=== PATIENT | female | born 2000 | race African-American/Black ===

== ENCOUNTER 2024-03-04 15:06 | Inpatient (IN) ==
--- NOTE | 2024-03-04 16:27 | Emergency Department Note ---
History of Present Illness General Chief complaint: Vaginal Pain Stated complaint: ABSCESS SKIN, VAGINA Time Seen by Provider: 03/04/24 16:10 History of Present Illness Maximum Pain Intensity: 10 This is a 23-year-old female that presents to the emergency department via private vehicle with complaints of "left-sided skin abscess, on vagina". The patient notes that she had an ingrown hair to the left labia majora 1.5 months ago however this past Wednesday became raised, then Wednesday, and Wednesday progressively enlarged. She presented to [facility] today and was referred here. She denies receiving any medications at [facility]. No I&D to the area at [facility]. She denies any vaginal pain internally. It is all external. No fevers, chills, nausea or vomiting. No pertinent past medical history, surgeries or allergies. Allergies Allergy/AdvReac Type Severity Reaction Status Date / Time No Known Allergies Allergy Unverified 03/04/24 21:38 Past Med/Surg History Problem List (Updated 03/04/24 @ 18:36 by Elias Calero PA-C) Abscess of left genital labia (Acute) Social History Smoking Status: Former smoker Second Hand Exposure: No; Do You Dip or Chew Tobacco: No; Hx Alcohol Use: Yes Hx Substance Use: No Preferred Language: Lebanese Communication Ability: Effective Correctional Counselor Required: No Beliefs That Will Affect Care: None Current Living Situation: Parent Other Information That Helps Us Care for You: No Feels Safe at Home: Yes Safety Concerns: Feels Safe At This Time Assistive Devices: None Review of Systems A total of 10 systems reviewed and were otherwise negative Physical Exam Vital Signs Vital Signs - 24 hr 03/04/24 15:15 03/04/24 18:25 Temperature 36.5 C Temperature Source Temporal Artery Scan Pulse Rate 128 H Pulse Rate [Finger] 99 H Respiratory Rate 19 15 Respiratory Effort / Characteristics Non-Labored Spontaneous Non-Labored Spontaneous Respiratory Depth Normal Normal Respiratory Pattern Regular Blood Pressure 123/88 Blood Pressure [Right Arm] 126/83 Blood Pressure Mean 99 Blood Pressure Mean [Right Arm] 97 Pulse Oximetry 100 100 Oxygen Delivery Method Room Air Room Air Sepsis Recent Fever Within 48 Hours No Sepsis New/Unexplained Change in Mental Status No Sepsis Action Taken by Nursing No Action Required VITAL SIGNS - Vital signs and nursing notes were reviewed. Stable and afebrile. GENERAL -23-year-old female appearing her stated age who is in no acute distress. Communicates well with provider and answers questions appropriately. SKIN - Without rashes. Please see exam below. HEAD - NC/AT. EYES - PERRL with EOMI bilaterally. Sclera anicteric. NOSE - Midline and without cyanosis. No epistaxis or purulent drainage noted. Septum midline without deviation or septal hematoma noted. MOUTH/OROPHARYNX - Without perioral cyanosis. NECK - Neck with FROM. No nuchal rigidity. LUNGS - CTA CARDIAC - RRR ABDOMEN - Abdominal contour normal without pulsations or visible masses. BS normoactive all four quadrants. No tenderness, palpable masses, hepatosplenomegaly, or ascites noted. NEUROLOGIC - Cranial nerves grossly intact. PSYCH -alert, oriented and pleasant on exam. Norman Zee present to [facility]. Consent was obtained from the patient. The left labia majora is mildly erythematous with edema with a palpable fluctuant structure approximately 2 cm in diameter. There is no current drainage. This does not seem to involve the internal vaginal structures. Course Administered Medications Lactated Ringer's (Lr) 1,000 mls @ 125 mls/hr IV .Q8H RODRIGUEZ Stop: 04/03/24 21:36 Last Admin: 03/04/24 22:11 Dose: 125 mls/hr Documented By: CRIS Oxycodone/Acetaminophen (Oxycodone/Acetaminophen 5mg/325mg Tab) 1 tab PO Q4H PRN PRN Reason: Pain Stop: 03/18/24 20:03 Last Admin: 03/04/24 22:09 Dose: 1 tab Documented By: CRIS Discontinued Medications Sodium Chloride (Nss) 1,000 mls @ 500 mls/hr IV .Q2H RODRIGUEZ Stop: 03/04/24 19:59 Last Infusion: 03/04/24 20:20 Dose: Infused Documented By: Admin: 03/04/24 18:25 Dose: 500 mls/hr Documented By: ROBERTO Ampicillin Sodium/Sulbactam Sodium 3,000 mg/ Sodium Chloride 100 mls @ 200 mls/hr IV NOW STA Stop: 03/04/24 18:21 Last Infusion: 03/04/24 19:42 Dose: Infused Documented By: Admin: 03/04/24 18:50 Dose: 200 mls/hr Documented By: ROBERTO Morphine Sulfate (Morphine Sulfate 2 Mg/Ml Carp) 2 mg IV NOW STA Stop: 03/04/24 19:16 Last Admin: 03/04/24 19:20 Dose: 2 mg Documented By: CARMINA Ondansetron HCl (Ondansetron Inj 2 Mg/Ml 2 Ml Vial) 4 mg IV NOW STA Stop: 03/04/24 19:16 Last Admin: 03/04/24 19:20 Dose: 4 mg Documented By: CARMINA Medical Decision Making Laboratory Data 03/04/24 16:52 03/04/24 16:52 Lab Results 03/04/24 03/04/24 Range/Units 16:52 18:20 WBC 15.86 H (4.8-10.8) K/ul RBC 5.60 H (4.20-5.40) M/uL Hgb 11.3 L (12.0-16.0) g/dl Hct 37.3 (37.0-47.0) % MCV 66.6 L (80.0-100.0) fL MCH 20.2 L (25.0-34.0) pg MCHC 30.3 L (32.0-36.0) g/dL RDW Std Deviation 35.6 L (36.4-46.3) fL RDW Coeff of Kristy 15.4 H (11.5-14.5) % Plt Count 302 (130-400) K/uL MPV 10.6 (9.4-12.4) fL Immature Gran % (Auto) 0.5 % Neut % (Auto) 83.6 % Lymph % (Auto) 11.5 % [place] % (Auto) 4.0 % Eos % (Auto) 0.1 % Baso % (Auto) 0.3 % Neut # (Auto) 13.26 H (1.40-6.50) K/uL Lymph # (Auto) 1.83 (1.20-3.40) K/uL [place] # (Auto) 0.64 H (0.11-0.59) K/uL Eos # (Auto) 0.01 (0.00-0.50) K/uL Baso # (Auto) 0.04 (0.00-0.20) K/uL Immature Gran # (Auto) 0.08 (0.01-0.20) K/uL Microcytosis Present Ovalocytes 1+ Schistocytes 1+ Sodium 137 (136-145) mmol/L Potassium 3.7 (3.5-5.1) mmol/L Chloride 102 (98-107) mmol/L Carbon Dioxide 23 (21-32) mmol/L Anion Gap 12 H (3-11) BUN 7 (6-23) mg/dl Creatinine 0.52 L (0.6-1.2) mg/dl Est Cr Clr Drug Dosing 122.7 ml/min Est GFR ( Amer) > 150.0 ml/min Est GFR (Non-Af Amer) 135.6 ml/min BUN/Creatinine Ratio 13.5 (10-20) Glucose 65 L (70-99(Fasting)) mg/dl Lactate 1.3 (0.4-2.0) mmol/L Calcium 10.4 H (8.6-10.3) mg/dl Total Bilirubin 0.7 (0.2-1.0) mg/dl AST 13 (13-39) U/L ALT 5 L (7-52) U/L Alkaline Phosphatase 56 (34-104) U/L Total Protein 8.7 H (6.0-8.3) gm/dl Albumin 5.0 (3.4-5.0) gm/dl Globulin 3.7 (2.5-4.0) gm/dl Albumin/Globulin Ratio 1.4 (0.9-2) Procalcitonin < 0.02 (0-0.5) ng/ml HCG, Qual Negative (Negative) MDM Narrative Patient was seen and evaluated as above in room D09. Review was performed of triage nursing notes and vital signs. A thorough history and physical examination was performed. I did review the accompanying documentation from [employer]. The patient has what appears to be an infection to the left labia majora/abscess. She is tachycardic on arrival at 128. Options of care were discussed with the patient. IV access was established. Labs were drawn. There is leukocytosis 15.86. Mild anemia noted with hemoglobin of 11.3. hCG negative. Mild hyperglycemia 65. Procalcitonin within normal range. I discussed presentation with the on-call CIS COORDINATOR, Dr. Chun. We agree with adding blood cultures, IV antibiotics. He will come evaluate the patient. I did order IV analgesia and IV antiemetics preprocedure. Please refer to gynecology note regarding procedure. Will proceed with admission at this time for IV antibiotics. Wound culture is pending. Please refer to further documentation regarding her stay. GCS: 15 In the evaluation and treatment of this patient the following differential diagnoses were entertained: Cellulitis, abscess, necrotizing fasciitis, among others. Impression & Plan Abscess of left genital labia Discharge Plan Visit Data Chief Complaint: Vaginal Pain Stated Complaint: ABSCESS SKIN, VAGINA ED Provider: Reinier Sommer ED Midlevel Provider: Elias Calero Discharge Problem: Abscess of left genital labia Patient Disposition: Home - Self-Care Condition: Good Discharge Instructions Interventions: ED Discharge Assessment Last Done: 03/04/24 20:36
[2024-03-04 17:18] LABS: Basophils # (auto) 0.04 K/uL (0.00-0.20); Basophils % (auto) 0.3 %; Eosinophils # (auto) 0.01 K/uL (0.00-0.50); Eosinophils % (auto) 0.1 %; Hematocrit (blood only) 37.3 % (37.0-47.0); Hemoglobin 11.3 g/dl (12.0-16.0); Immature Granulocytes # (auto) 0.08 K/uL (0.01-0.20); Immature Granulocytes % (auto) 0.5 %; Lymphocytes # (auto) 1.83 K/uL (1.20-3.40); Lymphocytes % (auto) 11.5 %; Mean Corpuscular Hemoglobin 20.2 pg (25.0-34.0); Mean Corpuscular Hgb Conc 30.3 g/dL (32.0-36.0); Mean Corpuscular Volume 66.6 fL (80.0-100.0); Monocytes # (auto) 0.64 K/uL (0.11-0.59); Neutrophils # (auto) 13.26 K/uL (1.40-6.50); Neutrophils % (auto) 83.6 %; RDW Coefficient of Variation 15.4 % (11.5-14.5); RDW Standard Deviation 35.6 fL (36.4-46.3); White Blood Count 15.86 K/ul (4.8-10.8)
[2024-03-04 17:30] LABS: Alanine Aminotransferase 5 U/L (7-52); Albumin Globulin Ratio 1.4 (0.9-2); Alkaline Phosphatase 56 U/L (34-104); Anion Gap 12 (3-11); Aspartate Aminotransferase 13 U/L (13-39); BUN Creatinine Ratio 13.5 (10-20); Bilirubin,Total 0.7 mg/dl (0.2-1.0); Blood Urea Nitrogen 7 mg/dl (6-23); Calcium 10.4 mg/dl (8.6-10.3); Carbon Dioxide 23 mmol/L (21-32); Chloride 102 mmol/L (98-107); Creatinine Clr Calc Pharmacy 122.7 ml/min; Est GFR (African American) > 150.0 ml/min; Est GFR (Non-African American) 135.6 ml/min; Globulin 3.7 gm/dl (2.5-4.0); Glucose 65 mg/dl (70-99(Fasting)); Potassium 3.7 mmol/L (3.5-5.1); Pregnancy Test, Serum Negative (Negative); Sodium 137 mmol/L (136-145); Total Protein 8.7 gm/dl (6.0-8.3)
[2024-03-04 17:38] LABS: Mean Platelet Volume 10.6 fL (9.4-12.4); Microcytosis Present; Ovalocytes 1+; Platelet Count 302 K/uL (130-400); Schistocytes 1+
[2024-03-04] MEDS: SODIUM CHLORIDE 0.9% 1,000 ML IV SCH (18:25)
[2024-03-04] MEDS: AMPICILLIN/SULBACTAM SOD 3,000 MG in SODIUM CHLOR 0.9% MINI-B 100 ML IV STA (18:50)
[2024-03-04] MEDS ORDERED: BENZOCAINE/TETRACAIN/BUTAM 50 APPLN/5 GM CAN EXT ONE (19:16)
[2024-03-04] MEDS ORDERED: ETHYL CHLORIDE AER PER SPRAY 100 ML CAN EXT ONE (19:17)
[2024-03-04] MEDS: MoRPHine SULFATE 2 MG/ML CARP IV STA (19:20)
[2024-03-04] MEDS: ONDANSETRON INJ 2 MG/ML 2 ML VIAL IV STA (19:20)
--- NOTE | 2024-03-04 20:12 | History & Physical Report ---
Date of Service March 04, 2024 Assessment & Plan (1) Abscess of left genital labia: Plan Admission overnight for IV antibiotics every 6 hours. Repeat CBC differential in the morning. History of Present Illness Chief Complaint: Pain and swelling of the left labia. Dizziness. Primary Care Provider: Naima Sanchez Patient is a 29-year-old male lip she is in good general health she is on no form of control her last menstrual period was 02/17/2024. She started developing pain in her left labia Radha the week of admission. [place] it was from an infected hair follicle. The symptoms persisted and got progressively worse. By the time she came to the emergency room she was unable to sit down for about 2 days had periodic episodes of lightheadedness and dizziness. I received a call from the emergency room doctor for consultation. She stated the patient had a white cell count of 18,000. And was tachycardia to the rate of 120 beats a minute. Past Med/Surg History Problem List (Updated 03/04/24 @ 18:36 by Elias Calero PA-C) Abscess of left genital labia (Acute) Social History Smoking Status: Never smoker Preferred Language: Nepalese Feels Safe at Home: Yes Physical Exam Physical Exam: Physical exam revealed a well-developed well-nourished black female alert oriented x 3 cooperative in a moderate amount of distress. Heart had regular rhythm S1 and S2 were low normal. Lungs are clear to auscultation percussion abdomen was soft and nontender there is no CVA tenderness no calf tenderness pelvic exam revealed large amount of swelling of the left labia was fluctuant. And there was an area that seem to be the source of infection and an infected hair follicle. Results & Data Results & Data Vital Signs (Past 12 Hours) Vital Signs Temp Pulse Pulse Resp BP BP Pulse Ox 03/04/24 18:25 99 H 15 126/83 100 03/04/24 15:15 36.5 C 128 H 19 123/88 100 O2 Del Method 03/04/24 18:25 Room Air 03/04/24 15:15 Room Air Medications Administered 3 g of Unasyn was administered IV prior to incision and drainage of the abscess.
--- NOTE | 2024-03-04 20:15 | Operative Report ---
Post Operative Report Pre & Post Diagnosis Preoperative diagnosis abscess of the left labia. Postoperative diagnosis incision drainage and culture of left labial abscess. I identified the patient and participated in the time-out.: Yes Procedure Patient was placed in the stirrups. Labial abscess was exposed. Was painted with Betadine. Sprayed with local spray ethyl chloride. Ethyl chloride was resprayed. A #15 blade was used to make an incision. A large amount of pustular material was expressed. Culture was taken of this material and sent to the lab. Pressure was applied to the labia to express all available fluid in the abscess cavity. Surgeon Kodi Chun MD Supervisor Sign Shop None Estimated Blood Loss 0 Findings Consistent with Post-Op Diagnosis Left labial abscess. Specimens Culture of the abscess taken and submitted to the lab. Anesthesia Type Local Complications None Indications Painful left labia. Unable to sit down. Suggestion of systemic symptoms from the infection. Description of Procedure Left labial abscess was exposed in the stirrups. Painted with Betadine solutio n. The lower area was then treated with ethyl chloride local anesthetic. And a #15 blade was used to incise the abscess. Abscess then was drained. Culture was taken. I attest to the content of the Intraoperative Record and any orders documented therein. Any exceptions are noted below.
[2024-03-04] MEDS ORDERED: ACETAMINOPHEN 325 MG TAB PO PRN (21:37)
[2024-03-04] MEDS: oxyCODONE/ACETAMINOPHEN 5mg/325mg TAB PO PRN (22:09)
[2024-03-04] MEDS: LACTATED RINGER'S 1,000 ML IV SCH (22:11)
[2024-03-04] MEDS: ZOLPIDEM TARTRATE 5 MG TAB PO PRN (23:27)
[2024-03-05] MEDS: Patient's ALLERGY Info needs ENTERED STA (00:40)
[2024-03-05] MEDS: AMPICILLIN/SULBACTAM SOD 3,000 MG in SODIUM CHLOR 0.9% MINI-B 100 ML IV SCH (01:40)
[2024-03-05 07:00] LABS: Basophils # (auto) 0.04 K/uL (0.00-0.20); Basophils % (auto) 0.3 %; Eosinophils % (auto) 0.8 %; Hematocrit (blood only) 27.5 % (37.0-47.0); Hemoglobin 8.7 g/dl (12.0-16.0); Immature Granulocytes # (auto) 0.05 K/uL (0.01-0.20); Immature Granulocytes % (auto) 0.4 %; Lymphocytes # (auto) 3.43 K/uL (1.20-3.40); Lymphocytes % (auto) 28.9 %; Mean Corpuscular Hemoglobin 20.5 pg (25.0-34.0); Mean Corpuscular Hgb Conc 31.6 g/dL (32.0-36.0); Mean Corpuscular Volume 64.9 fL (80.0-100.0); Monocytes # (auto) 0.89 K/uL (0.11-0.59); Monocytes % (auto) 7.5 %; Neutrophils # (auto) 7.36 K/uL (1.40-6.50); Neutrophils % (auto) 62.1 %; RDW Coefficient of Variation 15.4 % (11.5-14.5); RDW Standard Deviation 35.4 fL (36.4-46.3); Red Blood Count 4.24 M/uL (4.20-5.40); White Blood Count 11.87 K/ul (4.8-10.8)
[2024-03-05 07:24] LABS: Mean Platelet Volume 10.7 fL (9.4-12.4); Platelet Count 267 K/uL (130-400)
[2024-03-05 07:27] LABS: Microcytosis Present
[2024-03-05] MEDS: ONDANSETRON INJ 2 MG/ML 2 ML VIAL IV PRN (09:00)
--- NOTE | 2024-03-05 13:06 | Obstetrical Progress Note ---
Date of Service March 05, 2024 Assessment & Plan Admission and Anticipated Discharge Date Admission Date: March 04, 2024 OB Progress Note abdomen soft and non tender ambulating well decreased pain no calf tenderness afebrile Results & Data Vital Signs (Past 12 Hours) Vital Signs Temp Pulse Pulse Resp BP Pulse Ox O2 Del Method 03/05/24 08:15 36.5 C 75 18 113/62 99 Room Air 03/05/24 06:41 68 18 99/56 L 99 Room Air 03/05/24 01:45 36.7 C 78 16 109/65 98 Room Air
[2024-03-05 13:26] LABS: Basophils # (auto) 0.02 K/uL (0.00-0.20); Basophils % (auto) 0.2 %; Eosinophils # (auto) 0.08 K/uL (0.00-0.50); Eosinophils % (auto) 0.9 %; Hematocrit (blood only) 30.1 % (37.0-47.0); Immature Granulocytes # (auto) 0.05 K/uL (0.01-0.20); Immature Granulocytes % (auto) 0.5 %; Lymphocytes # (auto) 2.27 K/uL (1.20-3.40); Lymphocytes % (auto) 24.9 %; Mean Corpuscular Hgb Conc 29.9 g/dL (32.0-36.0); Mean Corpuscular Volume 66.7 fL (80.0-100.0); Monocytes # (auto) 0.66 K/uL (0.11-0.59); Monocytes % (auto) 7.2 %; Neutrophils # (auto) 6.03 K/uL (1.40-6.50); Neutrophils % (auto) 66.3 %; RDW Coefficient of Variation 15.5 % (11.5-14.5); RDW Standard Deviation 36.4 fL (36.4-46.3); Red Blood Count 4.51 M/uL (4.20-5.40); White Blood Count 9.11 K/ul (4.8-10.8)
[2024-03-05 13:48] LABS: Mean Platelet Volume 9.8 fL (9.4-12.4); Platelet Count 264 K/uL (130-400)
[2024-03-05 13:49] LABS: Hypochromasia Present; Microcytosis Present
--- NOTE | 2024-03-05 13:57 | Obstetrical Progress Note ---
Date of Service March 05, 2024 Assessment & Plan Admission and Anticipated Discharge Date Admission Date: March 04, 2024 OB Progress Note labia examined swelling greatly decreased no tenderness no fluid collection palpable will discharge after 7 pm antibiotics Results & Data Vital Signs (Past 12 Hours) Vital Signs Temp Pulse Pulse Resp BP Pulse Ox O2 Del Method 03/05/24 13:15 36.8 C 70 18 112/68 100 Room Air 03/05/24 08:15 36.5 C 75 18 113/62 99 Room Air 03/05/24 06:41 68 18 99/56 L 99 Room Air
--- NOTE | 2024-03-05 14:07 | Discharge Summary ---
Date of Service March 05, 2024 Admission HPI Per Admitting Provider Patient is a 29-year-old male lip she is in good general health she is on no form of control her last menstrual period was 02/17/2024. She started developing pain in her left labia Wednesday the week of admission. [place] it was from an infected hair follicle. The symptoms persisted and got progressively worse. By the time she came to the emergency room she was unable to sit down for about 2 days had periodic episodes of lightheadedness and dizziness. I received a call from the emergency room doctor for consultation. She stated the patient had a white cell count of 18,000. And was tachycardia to the rate of 120 beats a minute. Discharge Data Consultations 03/04/24 19:50 ED Decision to Admit Stat Discharge Instructions Patient was admitted through the emergency room with pain and swelling of the left labia. Symptoms had started Wednesday the week of admission. They have gotten progressively worse. At the time of admission she was unable to sit down and the pain was so bad. She was also experiencing symptoms of headaches. Tachycardia and chills. Under local anesthesia the labial abscess was drained. Cultures were taken. She was started on IV antibiotics. Kept overnight. She remained afebrile. Her white cell count decreased. Her symptoms gradually resolved. At the time of discharge swelling had decreased tenderness had decreased she was doing well she will get a dose of antibiotics prior to her discharge. And started on Augmentin twice daily for 7 days. Patient told to call if she has any recurrent symptoms
== END 2024-03-05 20:40 | disposition home or self-care (01) | DRG 747 ==
LOC: ED 15:06 → 4E1 20:01